=== PATIENT | male | born 1935 | race Caucasian/White ===

== ENCOUNTER 2022-11-19 22:02 | Emergency (ER) | payer MEDICARE, BC ==
[~2022-11-19] VITALS: Ht 162.6 cm; Wt 70.3 kg
[~2022-11-19 22:02] MED LIST: METO-357 PO; SIMV-49 PO; VALS160T2 PO
[2022-11-19 22:14] LABS: BASOPHILS # (AUTO) 0.1 K/UL (0.0-0.2); BASOPHILS % (AUTO) 1.2 % (0.0-2.0); EOSINOPHILS # (AUTO) 0.8 K/uL (0.0-0.7); EOSINOPHILS % (AUTO) 6.4 % (0.0-7.0); HEMATOCRIT 42.3 % (36.7-47.1); HEMOGLOBIN 13.7 g/dL (12.5-16.3); LYMPHOCYTES # (AUTO) 4.8 K/uL (0.8-4.8); LYMPHOCYTES % (AUTO) 40.2 % (20.5-51.5); MEAN CORPUSCULAR HEMOGLOBIN 30.9 uug (23.8-33.4); MEAN CORPUSCULAR HGB CONC 32 g/dL (32.5-36.3); MEAN CORPUSCULAR VOLUME 95.7 fL (73.0-96.2); MONOCYTES # (AUTO) 0.8 K/uL (0.1-1.30); MONOCYTES % (AUTO) 6.8 % (0.0-11.0); NEUTROPHILS # (AUTO) 5.5 K/uL (1.8-8.9); NEUTROPHILS % (AUTO) 45.4 % (38.5-71.5); PLATELET COUNT (AUTO) 174 K/uL (152-348); RED BLOOD CELL COUNT(AUTO) 4.43 MIL/uL (4.06-5.63); RED CELL DISTRIBUTION WIDTH 13.6 % (12.1-16.2)
[2022-11-19 22:17] LABS: DIFFERENTIAL COMMENT 1
[2022-11-19 22:19] LABS: CALCIUM 8.9 mg/dL (8.5-10.1); CARBON DIOXIDE 27 mmol/L (21-32); CHLORIDE 101 mmol/L (98-107); CREATININE 1.9 mg/dL (0.6-1.3); GLUCOSE 98 mg/dL (74-106); POTASSIUM 4.3 mmol/L (3.5-5.1); SODIUM SERUM 137 mmol/L (136-145); UREA NITROGEN, BLOOD 29 mg/dL (7-18)
[2022-11-19 22:28] LABS: ALANINE AMINOTRANSFERASE 27 U/L (16-63); ALBUMIN 3.8 g/dL (3.4-5.0); ALKALINE PHOSPHATASE 87 U/L (50-136); ASPARTATE AMINOTRANSFERASE 22 U/L (15-37); BILIRUBIN,DIRECT 0.3 mg/dL (0.0-0.2); BILIRUBIN,TOTAL 1.1 mg/dL (0.2-1.0); TOTAL PROTEIN, SERUM 7.6 g/dL (6.4-8.2)
[2022-11-19] MEDS ORDERED: METO-358 PO (22:46)
[2022-11-19] MEDS ORDERED: ATOR80TA PO (22:46)
[2022-11-19] MEDS ORDERED: SILD20TA2 PO (22:46)
[2022-11-19] MEDS ORDERED: ESCI5TAB16 PO (22:46)
[2022-11-19] MEDS ORDERED: HYDR-4075 PO (22:46)
[2022-11-19] MEDS ORDERED: AMLO-212 PO (22:46)
[2022-11-19] MEDS ORDERED: NICARDIPINE-NS IVPB 200 ML IV PRN (23:00)
[2022-11-19] MEDS ORDERED: NICARDIPINE IN NS 200 ML IV ONE (23:07)
[2022-11-19] MEDS ORDERED: TENECTEPLASE 50 MG KIT IVP ONE ×2 (23:15→23:22)
[2022-11-19] MEDS ORDERED: NICARDIPINE IN NS 20 MG/200 ML PIGGYBACK IV ONE (23:30)
[2022-11-19] MEDS ORDERED: IOHEXOL 350 100 ML INFUS..BTL ONE (23:37)
[2022-11-19] MEDS ORDERED: IV NORMAL SALINE 250 ML IV ONE (23:38)
[2022-11-20 00:35] VITALS: BP 151/77
[2022-11-20] MEDS ORDERED: ONDANSETRON 4 MG/2 ML VIAL ONE (00:50)
[2022-11-20] MEDS ORDERED: ONDANSETRON 4 MG/2 ML VIAL IV ONE (01:00)
[2022-11-20 02:09] VITALS: O2SAT 96
== END 2022-11-20 05:05 | disposition short-term general hospital (02) ==
LOC: EDBD 22:02 → ER 22:02
DX: R41.82 Altered mental status, unspecified (principal); I63.9 Cerebral infarction, unspecified; R47.1 Dysarthria and anarthria; R47.01 Aphasia; I77.74 Dissection of vertebral artery; I25.10 Atherosclerotic heart disease of native coronary artery without angina pectoris; E78.5 Hyperlipidemia, unspecified; Z95.0 Presence of cardiac pacemaker; Z79.899 Other long term (current) drug therapy; Z20.822 Contact with and (suspected) exposure to COVID-19
CPT/HCPCS: 99291; 70496; 96365; 71045; 96366; 96375 ×2; 80076; 80048; 85025; 85730; 87040; 84484; 36415; 93005; 70498; 83605; 70450; 96376; 87426; Q9967; J2405; A4663; J3101